=== PATIENT | male | born 1940 | race Native Hawaiian/Other Pacific Islander ===

== ENCOUNTER 2017-01-23 13:51 | Emergency (ER) | payer OTHER ==
[~2017-01-23] VITALS: Ht 182.9 cm; Wt 103.4 kg
[2017-01-23] MEDS ORDERED: DONE5TAB PO (14:16)
[2017-01-23] MEDS ORDERED: GLIPIZIDE/METFORMIN PO (14:19)
[2017-01-23] MEDS ORDERED: PRAVACHOL20 MG PO (14:20)
[2017-01-23] MEDS ORDERED: AMLO2.5T PO (14:20)
[2017-01-23 15:03] LABS: PLATELET COUNT 224 K/uL (142-355); POTASSIUM 3.9 mmol/L (3.6-5.2); SODIUM 132 mmol/L (136-145)
== END 2017-01-23 16:20 | disposition home or self-care (01) ==
LOC: ED 13:51
PROVIDERS: Emergency Medicine
DX: I15.8 Other secondary hypertension (principal); T44.1X5A Adverse effect of other parasympathomimetics [cholinergics], initial encounter; Y92.89 Other specified places as the place of occurrence of the external cause
CPT/HCPCS: 36415; 80053; 85027; 87804; 99283

== ENCOUNTER 2017-05-07 21:38 | Emergency (ER) | payer OTHER ==
[~2017-05-07] VITALS: Ht 182.9 cm; Wt 103.9 kg
[~2017-05-07 21:38] MED LIST: AMLO2.5T PO; DONE5TAB PO; GLIPIZIDE/METFORMIN PO; PRAVACHOL20 MG PO
[2017-05-07 23:18] LABS: PLATELET COUNT 217 K/uL (142-355)
[2017-05-07 23:27] LABS: POTASSIUM 4.5 mmol/L (3.6-5.2); SODIUM 134 mmol/L (136-145)
[2017-05-08 00:07] VITALS: BP 148/88; TEMP 98.4
== END 2017-05-08 | disposition home or self-care (01) ==
LOC: ED 21:38
DX: E11.65 Type 2 diabetes mellitus with hyperglycemia (principal)
CPT/HCPCS: 80053; 81000; 83036; 85027; 96360; 96361; 99284

== ENCOUNTER 2017-11-24 09:41 | Outpatient (CLI) | payer OTHER | END 2017-11-24 09:54 | disposition short-term general hospital (02) | LOC: AMB 09:41 | DX: R53.1 Weakness (principal); R50.9 Fever, unspecified; R68.89 Other general symptoms and signs | CPT/HCPCS: A0425; A0427 ==

== ENCOUNTER 2017-11-24 09:59 | Emergency (ER) | payer OTHER ==
[~2017-11-24] VITALS: Ht 182.9 cm; Wt 99.8 kg
[2017-11-24 10:47] LABS: PLATELET COUNT 182 K/uL (142-355)
[2017-11-24 10:53] LABS: POTASSIUM 3.6 mmol/L (3.6-5.2)
[2017-11-24 14:52] VITALS: BP 142/78; TEMP 99
== END 2017-11-24 14:53 | disposition home or self-care (01) ==
LOC: ED 10:08
PROVIDERS: Family Medicine
DX: R05 Cough (principal); R53.1 Weakness; E87.1 Hypo-osmolality and hyponatremia; J11.1 Influenza due to unidentified influenza virus with other respiratory manifestations
CPT/HCPCS: 36415; 80053; 85027; 87804; 96360; 99284

== ENCOUNTER 2020-03-03 22:31 | Emergency (ER) | payer OTHER ==
[~2020-03-03] VITALS: Ht 182.9 cm; Wt 97.5 kg
[2020-03-03 23:32] LABS: PLATELET COUNT 205 K/uL (142-355)
[2020-03-03 23:41] LABS: POTASSIUM 3.9 mmol/L (3.6-5.2); SODIUM 133 mmol/L (136-145)
[2020-03-04 00:01] VITALS: BP 157/86; TEMP 98.6
== END 2020-03-04 00:10 | disposition home or self-care (01) ==
LOC: ED 22:31
PROVIDERS: Emergency Medicine
DX: E11.65 Type 2 diabetes mellitus with hyperglycemia (principal); Z79.4 Long term (current) use of insulin
CPT/HCPCS: 36415; 80053; 85027; 93005; 99283

== ENCOUNTER 2021-11-11 15:26 | Emergency (ER) | payer OTHER ==
[~2021-11-11] VITALS: Ht 182.9 cm; Wt 97.5 kg
[2021-11-11 16:50] VITALS: BP 144/70; TEMP 98
== END 2021-11-11 16:50 | disposition home or self-care (01) ==
LOC: ED 15:26 → EDSTATUS 15:26 → ED 16:50
DX: U07.1 COVID-19 (principal)
CPT/HCPCS: 99281

== ENCOUNTER 2023-08-12 07:53 | Outpatient (CLI) | payer OTHER | END 2023-08-12 19:07 | disposition home or self-care (01) | LOC: LAB 07:53 | PROVIDERS: ATTEND Internal Medicine | DX: Z76.89 Persons encountering health services in other specified circumstances (principal) | CPT/HCPCS: 87081 ==